=== PATIENT | male | born 1935 | race Caucasian/White ===

== ENCOUNTER 2022-10-01 17:30 | Outpatient (CLI) | payer MEDICARE, OTHER, SELFPAY | END 2022-10-01 17:31 | disposition home or self-care (01) | LOC: AMB 10-03 10:13 | PROVIDERS: Visit Provider Family Medicine | DX: S49.92XA Unspecified injury of left shoulder and upper arm, initial encounter (principal); W00.0XXA Fall on same level due to ice and snow, initial encounter; Y92.480 Sidewalk as the place of occurrence of the external cause | CPT/HCPCS: A0425; A0427; A0998 ==

== ENCOUNTER 2022-10-01 18:01 | Emergency (ER) | payer MEDICARE, OTHER, SELFPAY ==
[2022-10-01 18:04] VITALS: BP 123/84; PULSE 71; RESP 20; TEMP 36.5; O2SAT 97; BMI 25.8
--- NOTE | 2022-10-01 18:06 | CRLHL7_ITS ---
For Patients: As a result of the Cures Act, medical imaging exams and procedure reports are released immediately into your electronic medical record. You may view this report before your referring provider. If you have questions, please contact your health care provider. Indication: Injury Technique: Two views Comparison: None Findings: Bones: Alignment is normal. No fractures or bone lesions. 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 Soft tissues: Atherosclerosis. Pacemaker generator overlies the left hemithorax. Pacemaker leads partially included on the exam. Dictated by Imtiaz Diana MD @ 10/01/2022 7:03:08 PM (Electronically Signed)
--- NOTE | 2022-10-01 18:06 | CRLHL7_ITS ---
For Patients: As a result of the Cures Act, medical imaging exams and procedure reports are released immediately into your electronic medical record. You may view this report before your referring provider. If you have questions, please contact your health care provider. Indication: Injury. Technique: Left humerus, 2 views. Comparison: None. Findings: Bones: Alignment is normal. No fractures or bone lesions. Joint spaces: Mild diffuse degenerative changes.. Soft tissues: Soft tissue swelling.. Impression: No sign of acute injury. Dictated by Ezequiel Chapin MD @ 10/01/2022 7:07:28 PM (Electronically Signed)
--- NOTE | 2022-10-01 18:07 | ED.GENADULT ---
HPI - General Adult General Chief complaint: Shoulder Injury/Pain Stated complaint: Dislocated Shoulder Time Seen by Provider: 10/01/22 18:02 History of Present Illness HPI narrative: This 87-year-old male comes in by ambulance because of an injury to his left shoulder. This occurred about an hour prior to arrival. He slipped and fell onto his left elbow and has pain and swelling in his left anterior proximal humerus. He states that he did not hit his head or have loss of consciousness. He does not report any other injury. He did manage to core all to a neighbor's place who called for help so that he was able to come in by ambulance. Related Data Home Medications Medication Instructions Recorded Confirmed allopurinol .ROUTE 10/01/22 apixaban .ROUTE 10/01/22 furosemide .ROUTE 10/01/22 metoprolol succinate PO 10/01/22 Allergies Allergy/AdvReac Type Severity Reaction Status Date / Time No Known Drug Allergies Allergy Verified 10/01/22 18:14 Review of Systems Status of ROS: Reports: 10 or more systems reviewed and unremarkable except as noted in History and below Narrative: Constitutional: No fevers, no weight gain or loss. Eyes: No discharge. No vision changes. HENT: No congestion, no sore throat, no ear pain. Cardiovascular: No chest pain, no palpitations. Respiratory: No shortness of breath, no wheezes, no cough. Gastrointestinal: No abdominal pain, no vomiting, no diarrhea. Genitourinary: No dysuria, no hematuria. Musculoskeletal: Left shoulder pain and swelling. Skin: No rashes, no pruritis. Neurological: No dizziness, weakness, sensory change, speech change. Endo/Heme/Allergies: No bruising or bleeding. No polydipsia. Pysch: no suicidality, no anxiety, no insomnia. All other systems reviewed and are negative. PFSH PFSH Social History Smoking Status: Never smoker How often do you have a drink containing alcohol: never AUDIT-C Alcohol total score: 0 Non-prescribed substance use: denies use Exam Narrative: Exam Narrative: Constitutional: Well-developed, well-nourished, no acute distress. HEENT: Normocephalic, atraumatic. Neck: Normal range of motion. Nontender. Supple. Heart: Intact distal pulses. Lungs: No chest discomfort. No wheezes, rhonchi, or rales. Abdomen: Nontender. Back: Normal range of motion. Extremities: Large swelling in the anterior aspect of the left shoulder. There is no posterior vacant see typical of a dislocation. He has some tenderness when palpating along the clavicle. He is able to move his fingers and does not have any decreased function in his left hand or wrist. Skin: Intact. No rash. Warm. No erythema or pallor. Neurologic: No altered sensation. No weakness. Alert and oriented. Psychiatric: No suicidality. No anxiety or depression. No insomnia. Nursing notes and vitals signs are reviewed. Const: Vital Signs, click to edit/add: Vital Signs - 24 hr 10/01/22 18:04 Temperature 97.7 F Pulse Rate [Pulse Oximeter] 71 Respiratory Rate 20 Blood Pressure [Ri ght Upper Arm] 123/84 Pulse Oximetry 97 Oxygen Delivery Me thod Room Air Course Vital Signs Vital signs: Initial Vital Signs Temperature 97.7 F 10/01/22 18:04 Temperature Source Temporal Artery Scan 10/01/22 18:04 Pulse Rate 71 10/01/22 18:04 Respiratory Rate 20 10/01/22 18:04 Blood Pressure 123/84 10/01/22 18:04 Blood Pressure Mean 97 10/01/22 18:04 Blood Pressure Position Supine 10/01/22 18:04 Pulse Oximetry 97 10/01/22 18:04 Oxygen Delivery Method 10/01/22 18:04 Vital Signs Temperature 97.7 F 10/01/22 18:04 Pulse Rate 71 10/01/22 18:04 Respiratory Rate 20 10/01/22 18:04 Blood Pressure 123/84 10/01/22 18:04 Pulse Oximetry 97 10/01/22 18:04 Oxygen Delivery Method 10/01/22 18:04 Temperature 97.7 F 10/01/22 18:04 Pulse Rate 71 10/01/22 18:04 Respiratory Rate 20 10/01/22 18:04 Blood Pressure 123/84 10/01/22 18:04 Pulse Oximetry 97 10/01/22 18:04 Oxygen Delivery Method 10/01/22 18:04 Medical Decision Making MDM Narrative Medical decision making narrative: This patient comes in for evaluation of shoulder injury that occurred just prior to arrival. He fell hard onto his left elbow and does have an abrasion there. This is a mechanism that is more suspicious for rotator cuff injury. X-ray images of his left clavicle and humerus are negative for fracture or dislocation. He is on blood thinners and does have a significant hematoma in the left anterior shoulder region. When the patient is remaining still with his arm at rest he has minimal pain at this time. [facility] and [facility] if possible. I did make arrangements for follow-up appointment with our orthopedic clinic which can be canceled if needed. He received a sling and a prescription for [place] tablets. Imaging Data XR Clavicle: Radiologist's impression: Findings: Bones: Alignment is normal. No fractures or bone lesions. 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 Soft tissues: Atherosclerosis. Pacemaker generator overlies the left hemithorax. Pacemaker leads partially included on the exam. XR R Humerus: Radiologist's impression: No sign of acute injury. Discharge Plan Discharge Clinical Impression: Rotator cuff injury Patient Disposition: Home w/ Parent or Adult Condition: Unchanged Additional Instructions: Wear sling. Use medications as needed and directed. Follow up with orthopedic clinic for further evaluation and treatment. Prescriptions: No Action apixaban .ROUTE furosemide .ROUTE allopurinol .ROUTE metoprolol succinate PO Follow Up/Referrals: Provider,Not a Local [Primary Care Provider] - Stand Alone Forms: [employer] Info Instructions
[2022-10-01 18:30] VITALS: BP 118/87
[2022-10-01 19:00] VITALS: BP 113/85
--- NOTE | 2022-10-01 20:15 | ED.NURSE ---
[employer] did not have norco, script printed from [facility] and sent with pt.
== END 2022-10-01 20:19 | disposition home or self-care (01) ==
PROVIDERS: Emergency Provider Emergency Medicine Emergency Medical Services
DX: S46.002A Unspecified injury of muscle(s) and tendon(s) of the rotator cuff of left shoulder, initial encounter (principal); W01.0XXA Fall on same level from slipping, tripping and stumbling without subsequent striking against object, initial encounter
CPT/HCPCS: 73000; 73060; 99283; 99284

== ENCOUNTER 2022-10-01 23:26 | Outpatient (CLI) | payer MEDICARE, OTHER, SELFPAY | END 2022-10-01 23:27 | disposition home or self-care (01) | LOC: AMB 10-08 21:07 | PROVIDERS: Visit Provider Family Medicine | DX: R41.82 Altered mental status, unspecified (principal) | CPT/HCPCS: A0998 ==

== ENCOUNTER 2022-11-04 13:24 | Outpatient (RCR) | payer OTHER, SELFPAY ==
[2022-10-20 15:40] LABS: Hematocrit 41.1 % (37.0-53.0); Hemoglobin* 13.1 gm/dL (13.5-17.5); Mean Corpuscular HGB Conc 32 gm/dL (32-36); Mean Corpuscular Hemoglobin 32 pg (26-34); Mean Corpuscular Volume 99 fL (80-100); Platelet Count* 230 K/uL (140-440); Red Blood Count 4.15 m/uL (4.30-5.90); White Blood Count* 6.55 K/uL (4.50-11.00)
[2022-10-20 15:42] LABS: Slide Review Reflex No
[2022-10-20 16:09] LABS: INR 1.66 (0.91-1.10); Prothrombin Time 20.5 Seconds
[2022-10-23 14:19] LABS: Hematocrit 41.2 % (37.0-53.0); Hemoglobin* 13.1 gm/dL (13.5-17.5); Mean Corpuscular HGB Conc 32 gm/dL (32-36); Mean Corpuscular Hemoglobin 32 pg (26-34); Mean Corpuscular Volume 100 fL (80-100); Platelet Count* 218 K/uL (140-440); Red Blood Count 4.14 m/uL (4.30-5.90); White Blood Count* 5.12 K/uL (4.50-11.00)
[2022-10-23 14:25] LABS: Slide Review Reflex No
[2022-10-23 15:05] LABS: INR 2.31 (0.91-1.10); Prothrombin Time 26.5 Seconds
[2022-11-04 13:57] LABS: Basophils Absolute Auto 0.04 K/uL (0.00-0.30); Basophils Percent Auto 0.6 % (0.0-3.0); Eosinophils Absolute Auto 0.16 K/uL (0.00-0.50); Eosinophils Percent Auto 2.5 % (0.0-7.0); Hematocrit 48.8 % (37.0-53.0); Hemoglobin* 15.5 gm/dL (13.5-17.5); Immature Granulocytes Abs Auto 0.01 K/uL (0.00-0.30); Immature Granulocytes Pct Auto 0.2 %; Lymphocytes Absolute Auto 1.33 K/uL (0.90-2.90); Lymphocytes Percent Auto 20.4 % (20-44); Mean Corpuscular HGB Conc 32 gm/dL (32-36); Mean Corpuscular Hemoglobin 31 pg (26-34); Mean Corpuscular Volume 98 fL (80-100); Monocytes Percent Auto 9.5 % (0.0-11.0); Neutrophils Absolute Auto 4.35 K/uL (1.7-7.0); Neutrophils Percent Auto 66.8 % (42.0-72.0); Platelet Count* 218 K/uL (140-440); Red Blood Count 4.96 m/uL (4.30-5.90); White Blood Count* 6.51 K/uL (4.50-11.00)
[2022-11-04 14:03] LABS: Slide Review Reflex No
[2022-11-04 14:10] LABS: INR 2.27 (0.91-1.10); Prothrombin Time 26.2 Seconds
== END 2023-10-14 14:33 | disposition home or self-care (01) ==
LOC: LAB 13:24
PROVIDERS: Visit Provider Internal Medicine Hematology & Oncology
DX: Z86.718 Personal history of other venous thrombosis and embolism (principal)
CPT/HCPCS: 36415; 85018; 85025; 85027; 85610